=== PATIENT | male | born 1995 | race Caucasian/White ===

== ENCOUNTER 2017-07-12 02:49 | Emergency (ER) | payer BC, OTHER ==
[2017-07-12 02:55] VITALS: BP 136/76; PULSE 89; RESP 16; TEMP 98.6; O2SAT 93
[2017-07-12] MEDS ORDERED: AMOXICILLIN 250 MG PREPACK#4 BTL TAKEHOME ONE (03:08)
[2017-07-12] MEDS ORDERED: guaiFENesin 200 MG/10 ML UDL PO ONE (03:09)
--- NOTE | 2017-07-12 03:12 | EDPHY ---
H & P Stated Complaint: sinus infection, cough Time Seen by Provider: 07/12/17 02:56 HPI/ROS: HPI The patient presents with cough and sinus pain of his frontal sinuses bilaterally which has been present for the last several days, though became worse tonight.. REVIEW OF SYSTEMS Constitutional: No fever, no chills. Eyes: No discharge. ENT: No sore throat. Cardiovascular: No chest pain, no palpitations. Respiratory: No cough, no shortness of breath. Gastrointestinal: No abdominal pain, no vomiting. Genitourinary: No hematuria. Musculoskeletal: No back pain. Skin: No rashes. Neurological: No headache. PMHx: Soc Hx: FHx: PHYSICAL General Appearance: [Alert, no distress] Eyes: [Pupils equal and round no pallor or injection] ENT, Mouth: [Mucous membranes moist] Respiratory: [There are no retractions, lungs are clear to auscultation] Cardiovascular: [ Regular rate and rhythm ] Gastrointestinal: [ Abdomen is soft and non-tender, no masses, bowel sounds normal ] Neurological: [ A&O, moves all extremities] Skin: [ Warm and dry, no rashes] Musculoskeletal: [Neck is supple non tender ] Extremities: [symmetrical, full range of motion ] Psychiatric: [ Patient is oriented X 3, there is no agitation ] Source: Patient Exam Limitations: No limitations - Personal History Current Tetanus/Diphtheria Vaccine: Yes - Medical/Surgical History Hx Asthma: No Hx Chronic Respiratory Disease: No Hx Diabetes: No Hx Cardiac Disease: No Hx Renal Disease: No Hx Cirrhosis: No Hx Alcoholism: No Hx HIV/AIDS: No Hx Splenectomy or Spleen Trauma: No Other PMH: sinus sx, kyphosis, - Social History Smoking Status: Never smoked Constitutional: Initial Vital Signs Temperature (C) 37.0 C 07/12/17 02:51 Heart Rate 89 07/12/17 02:51 Respiratory Rate 16 07/12/17 02:51 Blood Pressure 136/76 H 07/12/17 02:51 O2 Sat (%) 93 07/12/17 02:51 O2 Delivery Mode Room Air Allergies/Adverse Reactions: codeine Allergy (Verified 07/12/17 02:54) Vomiting Home Medications: Medication Instructions Recorded Amoxicillin Trihydrate 500 mg PO Q12H #14 cap 07/12/17 [Amoxicillin] Medical Decision Making - Data Points Medications Given: Discontinued Medications Amoxicillin (Amoxil Chewable 250 Mg Prepack#4) 1 btl TAKEHOME EDNOW ONE PRN Reason: Protocol Stop: 07/12/17 03:09 Last Admin: 07/12/17 03:19 Dose: 1 btl Amoxicillin (Amoxicillin) 500 mg PO EDNOW ONE PRN Reason: Protocol Stop: 07/12/17 03:13 Last Admin: 07/12/17 03:18 Dose: 500 mg Guaifenesin (Robitussin Oral Liquid 200mg/10ml) 200 mg PO EDNOW ONE Stop: 07/12/17 03:10 Last Admin: 07/12/17 03:19 Dose: 200 mg Departure - Departure Disposition: Home, Routine, Self-Care Clinical Impression: Sinusitis Qualifiers: Sinusitis location: frontal Chronicity: subacute Qualified Code(s): J01.10 - Acute frontal sinusitis, unspecified Condition: Good Instructions: Sinusitis (ED) Referrals: [facility],. [Clinic] - As per Instructions Prescriptions: Amoxicillin Trihydrate [Amoxicillin] 500 mg PO Q12H #14 cap
== END 2017-07-12 03:33 | disposition home or self-care (01) ==
DX: J01.10 Acute frontal sinusitis, unspecified (principal)